=== PATIENT | male | born 1970 | race Caucasian/White ===

== ENCOUNTER 2017-10-23 09:13 | Emergency (ER) | payer OTHER ==
[~2017-10-23] VITALS: Ht 175.3 cm; Wt 84.0 kg
[~2017-10-23 09:13] MED LIST: FLUT1SPR9; ZOLP5TAB3 PO
[2017-10-23 09:16] VITALS: BP 185/102; PULSE 86; RESP 20; TEMP 98.7; O2SAT 96
[2017-10-23 09:20] VITALS: BP 179/104; PULSE 83; RESP 20; O2SAT 98
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
[2017-10-23] MEDS ORDERED: ROBA750T PO (11:57)
[2017-10-23] MEDS ORDERED: MOBI15TA PO (11:57)
[2017-10-23 12:03] VITALS: BP 131/78; PULSE 87; RESP 18; O2SAT 96
[2017-10-23] MEDS ORDERED: ACETAMINOPHEN/HYDROcodone 325 MG/5 MG TAB PO ONE (12:15)
== END 2017-10-23 13:00 | disposition home or self-care (01) ==
LOC: NEPC 09:13
DX: S09.90XA Unspecified injury of head, initial encounter (principal); S16.1XXA Strain of muscle, fascia and tendon at neck level, initial encounter; S39.012A Strain of muscle, fascia and tendon of lower back, initial encounter; V29.60XA Unspecified motorcycle rider injured in collision with unspecified motor vehicles in traffic accident, initial encounter; I12.9 Hypertensive chronic kidney disease with stage 1 through stage 4 chronic kidney disease, or unspecified chronic kidney disease; N18.4 Chronic kidney disease, stage 4 (severe); Z85.038 Personal history of other malignant neoplasm of large intestine
CPT/HCPCS: 70450; 72040; 72100; 99284